=== PATIENT | female | born 1945 | race Caucasian/White ===

== ENCOUNTER → 2016-09-23 | Outpatient (CLI) | payer OTHER ==
[~2016-09-23] MED LIST: CALCIUM 600 +1 EAC1 PO; DYAZIDE 37.5-21 EACH PO; IBUPROFEN 600600 M1 PO; IBUPROFEN 800800 M1 PO; LEVOTHYROXIN0.137 M1 PO; LISINOPRIL10 MG PO; LOPRESSOR25 PO; MAGNESIUM OXID400 MG PO; MAXZIDE-25 MG1 EACH PO; ONE DAILY WOME1 EAC3 PO; VITAMIN D 5050000 I1 PO; VITAMIN D1000 UNI1 PO; ZOFRAN ODT4 MG PO
== END ==
LOC: RAD 09:16
DX: M47.816 Spondylosis without myelopathy or radiculopathy, lumbar region (principal); M47.814 Spondylosis without myelopathy or radiculopathy, thoracic region; M25.561 Pain in right knee

== ENCOUNTER 2018-03-06 21:35 | Emergency (ER) | payer OTHER ==
[~2018-03-06] VITALS: Ht 167.6 cm; Wt 108.9 kg
--- NOTE | ~2018-03-06 | EKG ---
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: BHAVYA : 1945 Requested By: Evgeny Dowell Order Number: [id number] MD: Chris Rodriges Measurements Intervals [place] Rate: 78 P: -12 SD: 192 QRS: 0 QRSD: 92 T: -8 QT: 415 QTc: 473 Interpretive Statements Sinus rhythm Anteroseptal infarct, age indeterminate Compared to ECG 02/06/2016 09:20:52 No significant change was found Electronically Signed On 03-08-2018 16:56:58 CDT by Chris Rodriges [email or web address] <ELECTRONICALLY SIGNED> By: Chris Rodriges MD, [facility] 03/08/18 1656 30 30 Chris Rodriges MD, [facility] /EPI
[2018-03-07 00:15] LABS: URINE BILIRUBIN NEGATIVE (Negative); URINE BLOOD TRACE (Negative); URINE CLARITY CLEAR; URINE COLOR YELLOW; URINE GLUCOSE-RANDOM* NEGATIVE (Negative); URINE KETONES NEGATIVE (Negative); URINE LEUKOCYTES-REFLEX NEGATIVE (Negative); URINE NITRITE-REFLEX NEGATIVE (Negative); URINE PROTEIN (DIPSTICK) NEGATIVE (Negative); URINE UROBILINOGEN 0.2 E.U./dl (0.2-1.0)
[2018-03-07 01:07] LABS: ABSOLUTE NEUTROPHILS 9.7 thou/uL (1.4-8.2); BASOPHILS 0.3 % (0.0-2.0); EOSINOPHILS 0.9 % (0.0-3.0); HEMOGLOBIN 14.7 gm/dL (12.0-15.0); LYMPHOCYTES 15.6 % (24.0-44.0); MCH 29.4 pg (26.0-34.0); MCHC 34.9 g/dL (28.0-37.0); MCV 84.2 fL (80.0-100.0); MONOCYTES 7.8 % (1.0-8.0); PLATELET COUNT 282 thou/uL (150-400); POLYS 75.4 % (36.0-66.0); RBC 4.99 mil/uL (4.20-5.00); RDW 14.3 % (10.5-14.5); WBC 12.8 thou/uL (4.0-11.0)
[2018-03-07 01:11] LABS: ANION GAP 10 mmol/L (7-16); BUN 15 mg/dL (7-18); CALCIUM 9.1 mg/dL (8.5-10.1); CHLORIDE 100 mmol/L (98-107); CO2 31 mmol/L (21-32); CREATININE 1.2 mg/dL (0.6-1.0); GLUCOSE 136 mg/dL (74-106); POTASSIUM 3.5 mmol/L (3.5-5.1); SODIUM 141 mmol/L (136-145)
[2018-03-07 01:21] LABS: ALBUMIN 3.9 g/dL (3.4-5.0); LIPASE 65 U/L (73-393); SGOT 36 U/L (15-37); SGPT 55 U/L (30-65); TOTAL BILIRUBIN 1.1 mg/dL (<0.1-1.0); TOTAL PROTEIN 6.7 g/dL (6.4-8.2); TROPONIN-I <0.06 ng/mL (<0.06)
[2018-03-07] MEDS ORDERED: PRILOSEC 20 MG20 MG PO (02:11)
[2018-03-07] MEDS ORDERED: ZOFRAN ODT8 MG PO (02:11)
[2018-03-07] MEDS ORDERED: HYDROCODONE-AP1 EAC6 PO (02:11)
[2018-03-07 02:30] VITALS: BP 165/91
== END 2018-03-07 02:34 | disposition home or self-care (01) ==
LOC: ER 21:35
PROVIDERS: Emergency Medicine
DX: R10.13 Epigastric pain (principal); M54.9 Dorsalgia, unspecified; R11.2 Nausea with vomiting, unspecified; R63.0 Anorexia; Z88.5 Allergy status to narcotic agent; Z88.8 Allergy status to other drugs, medicaments and biological substances; Z88.1 Allergy status to other antibiotic agents; Z88.0 Allergy status to penicillin

== ENCOUNTER → 2020-03-22 | Outpatient (CLI) | payer OTHER ==
[~2020-03-22] MED LIST changes: +HYDROCODONE-AP1 EAC6 PO; +PRILOSEC 20 MG20 MG PO; +ZOFRAN ODT8 MG PO
== END ==
LOC: SJCVCIMAG 03-21 09:16
PROVIDERS: ATTEND Internal Medicine Cardiovascular Disease
DX: I65.23 Occlusion and stenosis of bilateral carotid arteries (principal); I11.9 Hypertensive heart disease without heart failure; H53.132 Sudden visual loss, left eye